=== PATIENT | female | born 1980 | race African-American/Black ===

== ENCOUNTER 2016-08-24 14:46 | Emergency (ER) | payer MEDICARE ==
[~2016-08-24] VITALS: Ht 167.6 cm; Wt 99.8 kg
[2016-08-24 14:59] VITALS: BP_SYST 123
[2016-08-24] MEDS ORDERED: IPRATROPIUM/ALBUTEROL SULFATE 3 ML AMPUL.NEB INH ONE (15:15)
[2016-08-24 16:36] LABS: INR 3.7 (0.8-1.2); PROTHROMBIN TIME 42.1 SECS (9.5-12.5)
== END 2016-08-24 15:55 | disposition home or self-care (01) ==
LOC: SED 14:46
DX: J20.9 Acute bronchitis, unspecified (principal); J45.909 Unspecified asthma, uncomplicated; Z88.1 Allergy status to other antibiotic agents; Z88.8 Allergy status to other drugs, medicaments and biological substances
CPT/HCPCS: 36415; 85610-TC; 94640; 99283

== ENCOUNTER 2016-10-27 12:25 | Emergency (ER) | payer MEDICARE ==
[~2016-10-27] VITALS: Ht 165.1 cm; Wt 105.7 kg
[2016-10-27 12:25] VITALS: BP_SYST 115
[2016-10-27 14:29] VITALS: BP_SYST 124
== END 2016-10-27 14:29 | disposition home or self-care (01) ==
LOC: SED 12:25
DX: J32.0 Chronic maxillary sinusitis (principal); J45.909 Unspecified asthma, uncomplicated
CPT/HCPCS: 99283

== ENCOUNTER 2016-12-07 15:06 | Emergency (ER) | payer MEDICARE ==
[~2016-12-07] VITALS: Ht 165.1 cm; Wt 104.3 kg
[2016-12-07 15:25] VITALS: BP_SYST 122
--- NOTE | 2016-12-07 15:59 | NUR ---
Patient to ER bed 02 to gown for evaluation. Side rails up. Report given to Blessing
[2016-12-07] MEDS ORDERED: KETOROLAC TROMETHAMINE 60 MG/2 ML VIAL IM ONE (16:00)
--- NOTE | 2016-12-07 16:20 | NUR ---
Pt AAOx4, able to verbalize needs. Pt states she has on and off lower back pain that impairs her walking. Pt states she was in ER within the past couple of days to be treated for pain and states that prescribed "norco is not working." Pt c/o 10/10 pain in lower back upon movement. Pt states unknown cause and states she has not fallen down. No other complaints or injuries per pt or noted.
--- NOTE | 2016-12-07 16:40 | NUR ---
KYLEE Granda at bedside examining patient.
[2016-12-07] MEDS ORDERED: DEXAMETHASONE SOD PHOSPHATE 10 MG/ML VIAL IM ONE (17:00)
[2016-12-07 17:23] LABS: BILIRUBIN,URINE NEGATIVE (NEGATIVE); BLOOD, URINE NEGATIVE (NEGATIVE); CLARITY/URINE HAZY (CLEAR); COLOR,URINE YELLOW (YELLOW); GLUCOSE,URINE NEGATIVE (NEGATIVE); KETONES,URINE NEGATIVE (NEGATIVE); LEUKOCYTE ESTERASE ,URINE 2+ (NEGATIVE); NITRITE, URINE NEGATIVE (NEGATIVE); PH,URINE 5.5 (5.0-8.0); PROTEIN URINE NEGATIVE (NEGATIVE); UROBILINOGEN,URINE 0.2 (0.2-1.0)
--- NOTE | 2016-12-07 17:30 | NUR ---
Pt states no improvement in pain since med administration. Jesus Alberto [employer] SOLUTION ARCHITECT aware.
[2016-12-07] MEDS ORDERED: MORPHINE SULFATE 10 MG/ML VIAL IM ONE (18:00)
[2016-12-07] MEDS ORDERED: DIPHENHYDRAMINE INJ 50 MG/ML VIAL IM ONE (18:15)
[2016-12-07 18:49] VITALS: BP_SYST 103
--- NOTE | 2016-12-07 18:49 | NUR ---
Patient given written and verbal discharge instructions and verbalizes understanding. ER MD discussed with patient the results and treatment provided. Patient in stable condition. ID arm band removed. Rx of cipro, prednisone, and tramadol given. Patient educated on pain management and to follow up with PMD. Pain Scale 0/10. Opportunity for questions provided and answered.
[2016-12-07 18:54] LABS: BACTERIA,URINE FEW /HPF (None Seen); CALCIUM OXALATE CRYSTALS,UR 50-70 /HPF (None Seen); MUCUS,URINE None Seen /LPF (None Seen); RBC,URINE NONE SEEN /HPF (0-3); WBC,URINE 20-50 /HPF (0-3)
== END 2016-12-07 18:49 | disposition home or self-care (01) ==
LOC: SED 15:06
DX: M54.17 Radiculopathy, lumbosacral region (principal); N39.0 Urinary tract infection, site not specified; R03.0 Elevated blood-pressure reading, without diagnosis of hypertension; J45.909 Unspecified asthma, uncomplicated; Z90.89 Acquired absence of other organs; Z86.2 Personal history of diseases of the blood and blood-forming organs and certain disorders involving the immune mechanism; Z88.8 Allergy status to other drugs, medicaments and biological substances; Z88.1 Allergy status to other antibiotic agents
CPT/HCPCS: 81000; 81025; 87086; 96372; 99284; J1100; J1200; J1885; J2270

== ENCOUNTER 2018-02-15 08:22 | Emergency (ER) | payer MEDICAID ==
[~2018-02-15] VITALS: Ht 167.6 cm; Wt 100.7 kg
[2018-02-15 08:41] VITALS: BP_SYST 103
[2018-02-15] MEDS ORDERED: IPRATROPIUM/ALBUTEROL SULFATE 3 ML AMPUL.NEB (DUONEB) INH ONE (09:30)
[2018-02-15 10:14] VITALS: BP_SYST 128
== END 2018-02-15 10:14 | disposition home or self-care (01) ==
LOC: SED 08:22
DX: J45.909 Unspecified asthma, uncomplicated (principal); Z86.2 Personal history of diseases of the blood and blood-forming organs and certain disorders involving the immune mechanism; Z79.899 Other long term (current) drug therapy
CPT/HCPCS: 71045; 94640; 99283; J7620

== ENCOUNTER 2018-10-16 13:09 | Emergency (ER) | payer MEDICAID ==
[~2018-10-16] VITALS: Ht 165.1 cm; Wt 102.5 kg
--- NOTE | 2018-10-16 13:20 | NUR ---
Patient to ER bed 08 to gown for evaluation. Side rails up.
--- NOTE | 2018-10-16 13:23 | NUR ---
Pt brought by self, A&Ox4, pt presents to ER with lower back pain, spasms x 3 days, skin pink and warm, cap refill <3, VSS, respiraitons even and unlabored.
[2018-10-16 13:27] VITALS: BP_SYST 119
--- NOTE | 2018-10-16 13:30 | NUR ---
Dr Rushing at bedside examining patient
[2018-10-16] MEDS: ONDANSETRON HCL 4 MG/2 ML VIAL IVP ONE (14:21)
[2018-10-16] MEDS: LORazepam 2 MG/ML VIAL (FOR ER USE) IVP ONE (14:22)
--- NOTE | 2018-10-16 14:57 | NUR ---
Patient given written and verbal discharge instructions and verbalizes understanding. ER MD discussed with patient the results and treatment provided. Patient in stable condition. ID arm band removed. IV catheter removed intact and dressing applied, no active bleeding. Rx of Tylenol and flexeril given. Patient educated on pain management and to follow up with PMD. Pain Scale 0/10. Opportunity for questions provided and answered. Medication side effect fact sheet provided.
[2018-10-16 14:58] VITALS: BP_SYST 118
== END 2018-10-16 14:57 | disposition home or self-care (01) ==
LOC: SED 13:09
DX: M62.830 Muscle spasm of back (principal); Z86.2 Personal history of diseases of the blood and blood-forming organs and certain disorders involving the immune mechanism; J45.909 Unspecified asthma, uncomplicated; Z88.1 Allergy status to other antibiotic agents; Z88.8 Allergy status to other drugs, medicaments and biological substances
CPT/HCPCS: 81025; 96374; 96375; 99283; J2060; J2405

== ENCOUNTER 2020-09-25 08:38 | Emergency (ER) | payer MEDICAID ==
[~2020-09-25] VITALS: Ht 167.6 cm; Wt 102.1 kg
[2020-09-25 08:38] VITALS: BP_SYST 139
[2020-09-25] MEDS ORDERED: ONDANSETRON HCL 4 MG/2 ML VIAL IVP ONE (09:00)
[2020-09-25] MEDS ORDERED: MORPHINE 4 MG INJ. 4 MG/ML VIAL IVP ONE ×2 (09:00→10:00)
[2020-09-25] MEDS ORDERED: NACL 0.9% 1,000 ML IV ONE (09:00)
[2020-09-25 09:31] LABS: EOSINOPHILS # (AUTO) 0.1 K/uL (0.0-0.4); HEMATOCRIT 35.1 % (36-48); HEMOGLOBIN 11.8 g/dL (12.0-16.0); LYMPHOCYTES # (AUTO) 1.2 K/uL (1.0-5.5); LYMPHOCYTES % (AUTO) 27.3 % (20.5-51.5); MEAN CORPUSCULAR HEMOGLOBIN 26 pg (27-31); MEAN CORPUSCULAR HGB CONC 34 % (32-36); MEAN CORPUSCULAR VOLUME 77 fL (79.0-98.0); MONOCYTES # (AUTO) 0.4 K/uL (0.0-1.0); MONOCYTES % (AUTO) 10.3 % (1.7-9.3); NEUTROPHILS # (AUTO) 2.5 K/uL (1.8-7.7); NEUTROPHILS % (AUTO) 58.4 % (40.0-70.0); PLATELET COUNT (AUTO) 233 K/uL (130-430); RED BLOOD CELL COUNT(AUTO) 4.57 MIL/uL (4.2-6.2); RED CELL DISTRIBUTION WIDTH 16.2 % (9.0-15.0); WHITE BLOOD COUNT (AUTO) 4.3 K/uL (4.8-10.8)
[2020-09-25 09:48] LABS: CREATININE 1.09 mg/dL (0.55-1.30); POTASSIUM 4.2 mmol/L (3.5-5.1)
[2020-09-25 09:54] LABS: ALBUMIN 3.1 g/dL (3.4-4.8); TOTAL BILIRUBIN 0.1 mg/dL (0.0-1.0)
[2020-09-25 09:58] LABS: INR 4.4 (0.8-1.2); PROTHROMBIN TIME 43.7 SECS (9.5-12.5)
[2020-09-25] MEDS ORDERED: KETOROLAC TROMETHAMINE 30 MG VIAL IVP ONE (10:00)
[2020-09-25] MEDS ORDERED: NAPR-1172 PO (10:17)
[2020-09-25] MEDS ORDERED: HYDR-3917 PO (10:17)
[2020-09-25] MEDS ORDERED: ONDA-8 TL (10:33)
[2020-09-25 11:25] VITALS: BP_SYST 103
== END 2020-09-25 10:15 | disposition home or self-care (01) ==
LOC: SED 08:38
DX: D25.9 Leiomyoma of uterus, unspecified (principal); J45.909 Unspecified asthma, uncomplicated; Z79.899 Other long term (current) drug therapy; Z88.8 Allergy status to other drugs, medicaments and biological substances
CPT/HCPCS: 36415; 74176; 76376; 80053; 81025; 83690; 85025; 85610; 96361; 96374; 96375; 99284; J2270; J2405; J7030

== ENCOUNTER 2020-10-14 18:45 | Emergency (ER) | payer MEDICAID ==
[~2020-10-14] VITALS: Ht 167.6 cm; Wt 105.7 kg
[~2020-10-14 18:45] MED LIST: HYDR-3917 PO; NAPR-1172 PO; ONDA-8 TL
[2020-10-14 19:18] VITALS: BP_SYST 133
[2020-10-14 19:59] LABS: BASOPHILS % (AUTO) 0.9 % (0.0-2.0); EOSINOPHILS # (AUTO) 0.1 K/uL (0.0-0.4); EOSINOPHILS % (AUTO) 2.7 % (0.0-4.0); HEMATOCRIT 37.2 % (36-48); HEMOGLOBIN 12.1 g/dL (12.0-16.0); LYMPHOCYTES # (AUTO) 1.8 K/uL (1.0-5.5); LYMPHOCYTES % (AUTO) 31.7 % (20.5-51.5); MEAN CORPUSCULAR HEMOGLOBIN 25 pg (27-31); MEAN CORPUSCULAR HGB CONC 32 % (32-36); MEAN CORPUSCULAR VOLUME 78 fL (79.0-98.0); MONOCYTES # (AUTO) 0.6 K/uL (0.0-1.0); MONOCYTES % (AUTO) 10.3 % (1.7-9.3); NEUTROPHILS % (AUTO) 54.4 % (40.0-70.0); PLATELET COUNT (AUTO) 275 K/uL (130-430); RED BLOOD CELL COUNT(AUTO) 4.75 MIL/uL (4.2-6.2); RED CELL DISTRIBUTION WIDTH 15.9 % (9.0-15.0); WHITE BLOOD COUNT (AUTO) 5.6 K/uL (4.8-10.8)
--- NOTE | 2020-10-14 20:28 | NUR ---
Patient to ER bed 7 to gown for evaluation. Side rails up. Report given to MATTHIEU ESPITIA.
--- NOTE | 2020-10-14 20:29 | NUR ---
Came in ER ambulatory from home this 39 year old female, AAOX4, breathing spontaneously at room air, not in distress noted, with chief complaints of abdominal pain, Known with Asthma, C SECTION, tubal ligation. Vital signs stable
[2020-10-14 20:37] LABS: CALCIUM 9.2 mg/dL (8.4-11.0); CREATININE 1.17 mg/dL (0.55-1.30); POTASSIUM 3.6 mmol/L (3.5-5.1)
[2020-10-14 20:42] LABS: ALBUMIN 3.5 g/dL (3.4-4.8); TOTAL BILIRUBIN 0.2 mg/dL (0.0-1.0)
--- NOTE | 2020-10-14 20:45 | NUR ---
Urine HCG done, results negative.
[2020-10-14 20:59] LABS: BILIRUBIN,URINE NEGATIVE (NEGATIVE); BLOOD, URINE 3+ (NEGATIVE); COLOR,URINE YELLOW (YELLOW); GLUCOSE,URINE NEGATIVE (NEGATIVE); KETONES,URINE NEGATIVE (NEGATIVE); LEUKOCYTE ESTERASE ,URINE NEGATIVE (NEGATIVE); NITRITE, URINE NEGATIVE (NEGATIVE); PH,URINE 8.5 (5.0-8.0); PROTEIN URINE TRACE (NEGATIVE); UROBILINOGEN,URINE 0.2 (0.2-1.0)
[2020-10-14 21:05] LABS: CLARITY/URINE HAZY (CLEAR)
--- NOTE | 2020-10-14 21:07 | NUR ---
ER at bedside examining patient.
[2020-10-14 21:26] LABS: BACTERIA,URINE FEW /HPF (None Seen); CALCIUM OXALATE CRYSTALS,UR None Seen /HPF (None Seen); CALCIUM PHOSPHATE CRYSTALS,UR None Seen /HPF (None Seen); COARSE GRANULAR CASTS,URINE None Seen /LPF (None Seen); FINE GRANULAR CASTS,URINE None Seen /LPF (None Seen); HYALINE CASTS, URINE None Seen /LPF (None Seen); MUCUS,URINE None Seen /LPF (None Seen); OTHER CASTS, URINE None Seen /LPF (None Seen); OTHER CRYSTALS,URINE None Seen /HPF (None Seen); RBC,URINE 50-80 /HPF (0-3); TRICHOMONAS,URINE None Seen /HPF (None Seen); TRIPLE PHOSPHATE CRYSTAL,UR None Seen /HPF (None Seen); URIC ACID CRYSTALS,URINE None Seen /HPF (None Seen); URINE AMORPHOUS PHOSPHATES None Seen /HPF (None Seen); URINE AMORPHOUS URATE None Seen /HPF (None Seen); WAXY CASTS,URINE None Seen /LPF (None Seen); WBC,URINE 0-3 /HPF (0-3); YEAST,URINE None Seen /HPF (None Seen)
--- NOTE | 2020-10-14 22:00 | NUR ---
# 20 gauge angiocath placed to left ac. Use of asceptic technique. Opsite placed over site. Blood return noted. Flushed with 10 cc of normal saline. No evidence of infiltration noted. Patient tolerated well.
[2020-10-14] MEDS: NACL 0.9% 1,000 ML IV ONE (22:03)
--- NOTE | 2020-10-14 22:06 | NUR ---
Medications given, health teaching provided and verbalized understanding
[2020-10-14] MEDS: MORPHINE 4 MG INJ. 4 MG/ML VIAL IVP ONE (22:13)
[2020-10-14] MEDS: ONDANSETRON HCL 4 MG/2 ML VIAL IVP ONE (22:14)
[2020-10-14] MEDS: DIPHENHYDRAMINE INJ 50 MG/ML VIAL IVP ONE (22:15)
--- NOTE | 2020-10-14 22:23 | NUR ---
Patient transported to radiology (ultrasound)via wheelchair in stable condition, accompanied by digital controls technical officer.
--- NOTE | 2020-10-14 22:55 | NUR ---
Returned from radiology, back to [facility].
--- NOTE | 2020-10-14 23:35 | NUR ---
Patient transported to radiology (CT scan department) via wheelchair in stable condition, accompanied by information technology technician.
--- NOTE | 2020-10-14 23:51 | NUR ---
Returned from radiology, back to [facility].
--- NOTE | 2020-10-15 01:18 | NUR ---
Re-assesed by Dr. Miles, for possible discharge after pain meds.
[2020-10-15] MEDS ORDERED: HYDR-3917 PO (01:26)
[2020-10-15] MEDS: MORPHINE 4 MG INJ. 4 MG/ML VIAL IVP ONE (01:36)
[2020-10-15] MEDS ORDERED: MORPHINE 4 MG INJ. 4 MG/ML VIAL ONE (01:36)
[2020-10-15 01:46] VITALS: BP_SYST 118
--- NOTE | 2020-10-15 01:46 | NUR ---
Patient given written and verbal discharge instructions and verbalizes understanding. ER MD discussed with patient the results and treatment provided. Patient in stable condition. ID arm band removed. IV catheter removed intact and dressing applied, no active bleeding. Rx of [place] given. Patient educated on pain management and to follow up with PMD. Pain Scale 3/10. Opportunity for questions provided and answered. Medication side effect fact sheet provided.
== END 2020-10-15 01:46 | disposition home or self-care (01) ==
LOC: SED 18:45
DX: R19.00 Intra-abdominal and pelvic swelling, mass and lump, unspecified site (principal); R10.30 Lower abdominal pain, unspecified; J45.909 Unspecified asthma, uncomplicated; Z88.8 Allergy status to other drugs, medicaments and biological substances; Z79.899 Other long term (current) drug therapy
CPT/HCPCS: 36415; 74176; 76376; 76830; 76857; 80053; 81000; 81025; 85025; 85651; 86140; 96361; 96374; 96375; 96376; 99285; J1200; J2270 ×2; J2405; J7030

== ENCOUNTER → 2021-09-08 | Outpatient (CLI) | payer MEDICAID | END | disposition home or self-care (01) | LOC: SLB 08:00 → EDSTATUS 09-11 07:30 | PROVIDERS: ATTEND Internal Medicine Gastroenterology | DX: Z01.812 Encounter for preprocedural laboratory examination (principal); K58.1 Irritable bowel syndrome with constipation; Z20.822 Contact with and (suspected) exposure to COVID-19 | CPT/HCPCS: 36415; U0003 ==

== ENCOUNTER → 2021-10-24 | Emergency (ER) | payer MEDICAID ==
[~2021-10-24] VITALS: Ht 167.6 cm; Wt 102.1 kg
[2021-10-24 10:49] VITALS: BP_SYST 118
--- NOTE | 2021-10-24 10:56 | NUR ---
BIBS WITH C/C OF WAKING UP THIS AM WITH GODINEZ. HX OF MIGRAINES. PT REPORTS LEFT SIDED HEADACHE THATS MOVING OVER TO THE RIGHT SIDE OF HER HEAD. PT REPORTS FEELINGS OF WANTING TO PASS OUT, NAUSEATED, WEAK, WITH LIGHT SENSITIVITY. REPORTED TAKING TYLENOL 1000MG AT 0630 WITH NO RELIEF, TOOK ZOFRAN 4MG PO AT ABOUT 0800 WITH NO RELIEF. NO BED AVAILABLE. PT PLACED BACK IN WAITING ROOM. INFORMED DR. GUTIERREZ.
== END | disposition left against medical advice (07) ==
LOC: SED 10:11
DX: R51.9 Headache, unspecified (principal); Z53.21 Procedure and treatment not carried out due to patient leaving prior to being seen by health care provider

== ENCOUNTER 2022-04-25 10:24 | Emergency (ER) | payer MEDICAID ==
[~2022-04-25] VITALS: Ht 165.1 cm; Wt 102.1 kg
[2022-04-25 10:35] VITALS: BP_SYST 121
--- NOTE | 2022-04-25 10:37 | NUR ---
Patient triaged and placed in waiting room. VSS and patient appears in no acute distress at this time. Accompanied by FAMILY, awaiting available bed, and MD notified of need for MSE.
--- NOTE | 2022-04-25 11:45 | NUR ---
Patient left without being seen.
== END 2022-04-25 11:45 | disposition left against medical advice (07) ==
LOC: SED 10:24
DX: R05.9 Cough, unspecified (principal); R09.81 Nasal congestion; R51.9 Headache, unspecified; Z53.21 Procedure and treatment not carried out due to patient leaving prior to being seen by health care provider